=== PATIENT | female | born 1990 | race Caucasian/White ===

== ENCOUNTER 2020-01-03 16:12 | Emergency (ER) | payer OTHER ==
[~2020-01-03] VITALS: Ht 165.1 cm; Wt 118.8 kg
[~2020-01-03 16:12] MED LIST: AZITHROMYCIN 2250 MG PO; BIRTH CONTROL; MEDROL DOSPAK21 TA1 PO
[2020-01-03] MEDS ORDERED: FLONASE 0.05%50 MCG NARES (16:30)
[2020-01-03] MEDS ORDERED: AMOXICILLIN 50500 MG PO (16:30)
[2020-01-03 16:42] VITALS: BP 132/86
== END 2020-01-03 16:42 | disposition home or self-care (01) ==
LOC: M.ERS 16:12
DX: J06.9 Acute upper respiratory infection, unspecified (principal); J02.9 Acute pharyngitis, unspecified; J45.909 Unspecified asthma, uncomplicated; F32.9 Major depressive disorder, single episode, unspecified